=== PATIENT | female | born 1965 ===

== ENCOUNTER 2022-02-22 15:03 | Outpatient (REF) | payer SELFPAY | END 2022-02-22 15:04 | disposition home or self-care (01) | LOC: HO.LNP 15:03 | PROVIDERS: Visit Provider Internal Medicine | DX: H65.92 Unspecified nonsuppurative otitis media, left ear (principal) | CPT/HCPCS: 87070 ==

== ENCOUNTER 2022-10-13 14:22 | Outpatient (REF) | payer OTHER, SELFPAY ==
[2022-10-13 20:46] LABS: Calcium 9.3 mg/dL (8.4-10.2)
[2022-10-17 16:44] LABS: Calcium (PTHI) 9.9 mg/dL (8.6-10.4); PTHI 76 pg/mL (16-77)
== END 2022-10-13 14:23 | disposition home or self-care (01) ==
LOC: HO.MANLDS 14:22
PROVIDERS: Visit Provider Physician Assistant
DX: N20.2 Calculus of kidney with calculus of ureter (principal)
CPT/HCPCS: 36415; 82310; 83970